=== PATIENT | female | born 1960 | race Caucasian/White ===

== ENCOUNTER 2018-02-10 08:25 | Day surgery (SDC) | payer BC ==
[2018-02-10] MEDS ORDERED: Sodium Chloride 0.9% 10 ML Syringe IV ONE (08:26)
[2018-02-10] MEDS ORDERED: Dexamethasone 4 MG/ML SDV IV ONE (08:26)
[2018-02-10] MEDS ORDERED: Midazolam 1 MG/ML 2 ML SDV IV ONE (08:26)
[2018-02-10] MEDS ORDERED: Proparacaine 0.5% Ophth Soln 15 ML Bottle EYELF ONE (08:30)
[2018-02-10] MEDS ORDERED: Sodium Chloride 0.9% 10 ML Syringe FLUSH PRN (08:30)
[2018-02-10] MEDS ORDERED: Phenylephrine 10% Ophth Soln 5 ML Bot EYELF ONE (08:30)
[2018-02-10] MEDS ORDERED: Acetaminophen 325 MG Tab PO PRN (08:30)
[2018-02-10] MEDS ORDERED: Cataract Ophth Solution EYELF ONE (08:30)
[2018-02-10] MEDS ORDERED: Moxifloxacin 0.5% Ophth Soln 3 ML Bottle EYELF ONE (08:30)
[2018-02-10] MEDS ORDERED: Timolol Maleate 0.5% Ophth Soln 5 ML Bottle EYELF ONE (08:30)
[2018-02-10] MEDS ORDERED: Ondansetron 4 MG/2 ML SDV IVPUSH PRN (08:30)
[2018-02-10] MEDS ORDERED: Povidone-Iodine 5% Sterile Ophth Soln 30 ML Bottle EYELF ONE ×2 (08:30→09:39)
[2018-02-10] MEDS ORDERED: Phenylephrine 10% Ophth Soln 5 ML Bot EYELF PRN (08:30)
[2018-02-10] MEDS ORDERED: Tetracaine HCl/PF 0.5% 4 ML Bottle EYELF ONE (09:39)
[2018-02-10] MEDS ORDERED: Lidocaine 1% 30 ML SDV INJECT ONE (09:45)
[2018-02-10] MEDS ORDERED: Vancomycin 500 MG SDV EYELF ONE (09:45)
[2018-02-10] MEDS ORDERED: Balanced Salt Solution Ophth Irrig 500 ML Bottle IOCULAR ONE (09:47)
[2018-02-10] MEDS ORDERED: Chondroitin Sulfate/Hyaluronate Sodium Ophth Inj 0.5 ML Syringe IOCULAR ONE (09:47)
[2018-02-10] MEDS ORDERED: Apraclonidine 0.5% Ophth Soln 5 ML Bot EYELF ONE (09:55)
[2018-02-10] MEDS ORDERED: Dexamethasone/Neomycin/Polymyxin B Ophth Oint 3.5 GM Tube EYELF ONE (09:56)
--- NOTE | 2018-02-10 10:14 | OR ---
DATE: 02/10/2018 PREOPERATIVE DIAGNOSIS: Visually significant mixed cataract, left eye. POSTOPERATIVE DIAGNOSIS: Visually significant mixed cataract, left eye. PROCEDURE: Extracapsular cataract extraction with intraocular lens implant, left eye. ANESTHESIA: Topical/local MAC. COMPLICATIONS: None. INDICATION: Ms. Freeman was seen in the clinic with complaints of blurred vision and difficulty seeing both near and distance. Her clinical examination revealed mixed nuclear, cortical, and posterior subcapsular cataract. I explained options; I offered cataract surgery; and I explained risks including but not limited to infection, retinal detachment, loss of vision, need for additional surgery, and risks associated with anesthesia. We discussed implant options. She is symptomatic, and she has requested a multifocal implant. I did explain the increased potential for glare, halo, and dysphotopsia. She voiced an understanding with respect to risks, limitations, and wished to proceed. OPERATIVE DESCRIPTION: After informed consent was obtained and the risks, benefits, and alternatives were explained, the patient was brought to the operative suite and topical anesthesia was administered. The patient was then prepped and draped in the sterile fashion, and attention was placed on the left eye. A sterile lid speculum was placed into the left eye to allow operative exposure. A full-thickness paracentesis was made in the temporal portion of the operative eye. Preservative-free lidocaine 0.1 mL was injected into the anterior chamber followed by viscoelastic. A full-thickness corneal incision was then made into the anterior chamber. A bent needle cystotome was used to create a small lindsay in the anterior capsule. The capsulorrhexis forceps was then used to create a 360-degree curvilinear capsulorrhexis. The nucleus was then removed using a phacoemulsification handpiece, and the remaining cortical material was then removed with irrigation and aspiration handpiece. Following removal of the cortical material, the capsular bag was then inspected and noted to be free of any holes or tears. Viscoelastic was then injected into the capsular bag, and the intraocular lens was inserted into the capsular bag. The viscoelastic material was then removed from both the anterior and posterior chambers and from behind the IOL. The lens and capsular bag were then reinspected. The IOL was well centered and the capsular bag intact. The wound and paracentesis sites were inspected and hydrated with balanced saline solution. Both were found to be self-sealing. The intraocular pressure was assessed digitally and found to be within normal range. A good red reflex was noted at the completion of the procedure. No complications occurred during the operation. At the completion of the procedure, Maxitrol, Voltaren, and Iopidine drops were placed into the operative eye. A sterile eye shield was placed over the operative eye, and the patient was transported to the postoperative recovery area having tolerated the procedure well. Postoperative instructions were given along with a postoperative appointment. The patient was advised to call with any questions or concerns. [facility] /[id number]
[2018-02-10 11:04] VITALS: BP 101/67
== END 2018-02-10 11:00 | disposition home or self-care (01) ==
LOC: DL.SDS 08:25
PROVIDERS: ATTEND Ophthalmology
DX: H25.812 Combined forms of age-related cataract, left eye (principal)
CPT/HCPCS: A9270-GY; J1100; J2250; J3370; J7050; V2788

== ENCOUNTER 2018-02-17 06:23 | Day surgery (SDC) | payer BC ==
[2018-02-17] MEDS ORDERED: Midazolam 1 MG/ML 2 ML SDV IV ONE (06:24)
[2018-02-17] MEDS ORDERED: Dexamethasone 4 MG/ML SDV IV ONE (06:24)
[2018-02-17] MEDS ORDERED: Sodium Chloride 0.9% 10 ML Syringe IV ONE (06:24)
[2018-02-17] MEDS ORDERED: Povidone-Iodine 5% Sterile Ophth Soln 30 ML Bottle EYERT ONE ×2 (06:30→07:45)
[2018-02-17] MEDS ORDERED: Phenylephrine 10% Ophth Soln 5 ML Bot EYERT ONE ×2 (06:30→08:05)
[2018-02-17] MEDS ORDERED: Ondansetron 4 MG/2 ML SDV IVPUSH PRN (06:30)
[2018-02-17] MEDS ORDERED: Moxifloxacin 0.5% Ophth Soln 3 ML Bottle EYERT ONE (06:30)
[2018-02-17] MEDS ORDERED: Cataract Ophth Solution EYERT ONE (06:30)
[2018-02-17] MEDS ORDERED: Timolol Maleate 0.5% Ophth Soln 5 ML Bottle EYERT ONE (06:30)
[2018-02-17] MEDS ORDERED: Acetaminophen 325 MG Tab PO PRN (06:30)
[2018-02-17] MEDS ORDERED: Sodium Chloride 0.9% 10 ML Syringe FLUSH PRN (06:30)
[2018-02-17] MEDS ORDERED: Phenylephrine 10% Ophth Soln 5 ML Bot EYERT PRN (06:30)
[2018-02-17] MEDS ORDERED: Proparacaine 0.5% Ophth Soln 15 ML Bottle EYERT ONE (06:30)
[2018-02-17] MEDS ORDERED: Tetracaine HCl/PF 0.5% 4 ML Bottle EYERT ONE (07:45)
[2018-02-17] MEDS ORDERED: Lidocaine 1% 30 ML SDV INJECT ONE (07:50)
[2018-02-17] MEDS ORDERED: Vancomycin 500 MG SDV EYERT ONE (07:50)
[2018-02-17] MEDS ORDERED: Balanced Salt Solution Ophth Irrig 500 ML Bottle IOCULAR ONE (07:56)
[2018-02-17] MEDS ORDERED: Chondroitin Sulfate/Hyaluronate Sodium Ophth Inj 0.75 ML Syringe EYERT ONE (07:57)
[2018-02-17] MEDS ORDERED: Apraclonidine 0.5% Ophth Soln 5 ML Bot EYERT ONE (08:04)
[2018-02-17] MEDS ORDERED: Dexamethasone/Neomycin/Polymyxin B Ophth Oint 3.5 GM Tube EYERT ONE (08:05)
[2018-02-17 09:08] VITALS: BP 115/66
--- NOTE | 2018-02-17 14:48 | OR ---
DATE: 02/17/2018 PREOPERATIVE DIAGNOSIS: Visually significant mixed cataract, right eye. POSTOPERATIVE DIAGNOSIS: Visually significant mixed cataract, right eye. PROCEDURE: Extracapsular cataract extraction with intraocular lens implant, right eye. ANESTHESIA: Topical/local MAC. COMPLICATIONS: None. INDICATION: The patient was seen in the clinic with complaints of blurred vision. Clinical examination revealed visually significant mixed cataract. I explained options; I offered cataract surgery; and I explained risks including, but not limited to infection, retinal detachment, loss of vision, and need for additional surgery amongst others. We discussed implant options. She has requested a multifocal implant. I did explain the slightly increased potential for glare halo and dysphotopsia. She voiced an understanding with respect to risks and limitations. She is symptomatic and motivated to proceed. OPERATIVE DESCRIPTION: After informed consent was obtained and the risks, benefits, and alternatives were explained, the patient was brought to the operative suite and topical anesthesia was administered. The patient was then prepped and draped in the sterile fashion and attention was placed on the right eye. A sterile lid speculum was placed into the right eye to allow operative exposure. A full-thickness paracentesis was made in the temporal portion of the operative eye. Preservative-free lidocaine 0.1 mL was injected into the anterior chamber followed by viscoelastic. A full-thickness corneal incision was then made into the anterior chamber. A bent needle cystotome was used to create a small lindsay in the anterior capsule. The capsulorrhexis forceps was then used to create a 360-degree curvilinear capsulorrhexis. The nucleus was then removed using a phacoemulsification handpiece, and the remaining cortical material was then removed with irrigation and aspiration handpiece. Following removal of the cortical material, the capsular bag was then inspected and noted to be free of any holes or tears. Viscoelastic was then injected into the capsular bag, and the intraocular lens was inserted into the capsular bag. The viscoelastic material was then removed from both the anterior and posterior chambers and from behind the IOL. The lens and capsular bag were then reinspected. The IOL was well centered and the capsular bag intact. The wound and paracentesis sites were inspected and hydrated with balanced saline solution. Both were found to be self-sealing. The intraocular pressure was assessed digitally and found to be within normal range. A good red reflex was noted at the completion of the procedure. No complications occurred during the operation. At the completion of the procedure, Maxitrol, Voltaren, and Iopidine drops were placed into the operative eye. A sterile eye shield was placed over the operative eye, and the patient was transported to the postoperative recovery area having tolerated the procedure well. Postoperative instructions were given along with a postoperative appointment. The patient was advised to call with any questions or concerns. [facility] /[id number]
== END 2018-02-17 09:07 | disposition home or self-care (01) ==
LOC: DL.SDS 06:23
PROVIDERS: ATTEND Ophthalmology
DX: H25.811 Combined forms of age-related cataract, right eye (principal); Z88.8 Allergy status to other drugs, medicaments and biological substances; Z79.899 Other long term (current) drug therapy
CPT/HCPCS: 66984; A9270; J3370; J7050; J1100; J2250; V2788

== ENCOUNTER 2021-04-24 20:03 | Emergency (ER) | payer BC, MEDICAID ==
[2021-04-24 20:40] VITALS: BP 120/67; PULSE 84
--- NOTE | 2021-04-24 21:38 | EDM.PDOC ---
ED HPI GENERAL MEDICAL PROBLEM - General Chief Complaint: Head Injury Stated Complaint: MIDDLE BACK OF HEAD LACERATION Time Seen by Provider: 04/24/21 20:20 Source of Information: Reports: Patient History Limitations: Reports: No Limitations - History of Present Illness INITIAL COMMENTS - FREE TEXT/NARRATIVE: ED with c/o laceration of back of head , no loss of consciousness. tripped on flower pot in shed hit door frame. [employer]us 2018 - Related Data Allergies Allergy/AdvReac Type Severity Reaction Status Date / Time codeine Allergy Nausea and Verified 02/17/18 06:56 Vomiting Home Meds: Home Meds Calcium Carb/Vitamin D3/Vit K1 [Calcium + D Soft Chewable Tab] 1 each PO DAILY 12/22/13 [History] Linaclotide [Linzess] 1 cap PO DAILY 03/03/16 [History] Citalopram [Celexa] 10 mg PO DAILY 03/04/16 [History] Amoxicillin 1 tab PO BID 04/24/21 [History] Past Medical History HEENT History: Reports: Cataract, Impaired Vision Other HEENT History: WEARS CORRECTIVE LENSES Cardiovascular History: Reports: None Respiratory History: Reports: None Gastrointestinal History: Reports: Chronic Constipation, Irritable Bowel Syndrome, Other (See Below) Other Gastrointestinal History: LACTOSE INTOLERANCE Genitourinary History: Reports: Chronic Renal Insuffiency LABOR RELATIONS SPECIALIST History: Reports: Fibroids, , Other (See Below) Other LABOR RELATIONS SPECIALIST History: ATYPICAL LOBULAR HYPERPLASISA OF BREAST Musculoskeletal History: Reports: Other (See Below) Other Musculoskeletal History: CHONDROMALACIA PATELLAE SYNDROME; CERVICAL DISC SYNDROME; MYALGIA Neurological History: Reports: None Psychiatric History: Reports: Anxiety Endocrine/Metabolic History: Reports: None Hematologic History: Reports: Anemia Immunologic History: Reports: None Oncologic (Cancer) History: Reports: None Dermatologic History: Reports: None - Infectious Disease History Infectious Disease History: Reports: Chicken Pox, Shingles - Past Surgical History Head Surgeries/Procedures: Reports: None HEENT Surgical History: Reports: Adenoidectomy, Cataract Surgery, Tonsillectomy Cardiovascular Surgical History: Reports: None GI Surgical History: Reports: Colonoscopy Female Surgical History: Reports: Breast Biopsy, D&C, Hysterectomy, Salpingo- Oophorectomy, Other (See Below) Other Female Surgeries/Procedures: MYOMECTOMY; ENDOMETRIAL BIOPSY Oncologic Surgical History: Reports: Biopsy of Breast Dermatological Surgical History: Reports: Other (See Below) Social & Family History - Family History Family Medical History: No Pertinent Family History - Caffeine Use Caffeine Use: Reports: Coffee Caffeine Use Comment: 3-4 CUPS DAILY ED ROS GENERAL - Review of Systems Review Of Systems: Comprehensive ROS is negative, except as noted in HPI. ED EXAM, HEAD INJURY - Physical Exam Exam: See Below Exam Limited By: No Limitations General Appearance: Alert, Anxious, Mild Distress Head: Normocephalic, Scalp Lacerations Nexus Criteria: No: Posterior, Midline Cervical Tenderness, Evidence of Intoxication, Altered Level of Consciousness, Focal Neurological Deficit, Painful Distraction Injuries Ears: Normal External Exam Nose: Nasal Deformity Throat/Mouth: Normal Inspection Neck: Non-Tender, Full Range of Motion, Normal Alignment Respiratory: No Respiratory Distress, Lungs Clear Cardiovascular: Normal Peripheral Pulses, Regular Rate, Rhythm Back Exam: Full Range of Motion Extremities: Normal Inspection Neurologic: No Motor/Sensory Deficits, Alert, Normal Mood/Affect, Oriented x 3 - Harvey Coma Score Best Eye Response (Chidi): (4) Open Spontaneously Best Verbal Response (Harvey): (5) Oriented Best Motor Response (Chidi): (6) Obeys Commands ED LACERATION/WOUND & DAISY PROC - Laceration/Wound Repair Left Posterior Head Lac/wound length in cm: 3 Appearance: Superficial Skin Prep: Chlorhexidine (Hibiciens), Saline Closed with: Maite (x3) Tetanus Status Addressed: Yes (2018) Complications: No Course - Vital Signs Last Recorded V/S: Last Vital Signs Temp 98 F 04/24/21 20:19 Pulse 84 04/24/21 20:19 Resp 16 04/24/21 20:19 BP 120/67 04/24/21 20:19 Pulse Ox 100 04/24/21 20:19 Departure - Departure Time of Disposition: 21:45 Disposition: Home, Self-Care 01 Condition: Good Clinical Impression: Scalp laceration Scalp contusion Qualifiers: Encounter type: initial encounter Qualified Code(s): S00.03XA - Contusion of scalp, initial encounter Cervical strain, acute Qualifiers: Encounter type: initial encounter Qualified Code(s): S16.1XXA - Strain of muscle, fascia and tendon at neck level, initial encounter - Discharge Information *PRESCRIPTION DRUG MONITORING PROGRAM REVIEWED*: No *COPY OF PRESCRIPTION DRUG MONITORING REPORT IN PATIENT YUSUF: No Instructions: Concussion, Adult, [id number], Laceration Care, Adult, [id number] Referrals: PCP,None [Primary Care Provider] - Forms: ED Department Discharge Additional Instructions: may shower tomorrow maite out 7-10 days tylenol or ibuprofen for discomfort cold pack to scalp follow up if dizziness, weakness, severe headache Sepsis Event Note (ED) - Evaluation Sepsis Screening Result: No Definite Risk
== END 2021-04-24 21:48 | disposition home or self-care (01) ==
LOC: DL.ED 20:03
DX: S01.01XA Laceration without foreign body of scalp, initial encounter (principal); S16.1XXA Strain of muscle, fascia and tendon at neck level, initial encounter; Z88.5 Allergy status to narcotic agent; W22.8XXA Striking against or struck by other objects, initial encounter; W26.8XXA Contact with other sharp object(s), not elsewhere classified, initial encounter
CPT/HCPCS: 12002; 99282-25

== ENCOUNTER 2021-12-10 07:16 | Day surgery (SDC) | payer SELFPAY ==
[2021-12-10 07:51] VITALS: BP 115/43; PULSE 91
== END 2021-12-10 09:54 | disposition home or self-care (01) ==
LOC: DL.SDS 07:16
PROVIDERS: ATTEND Internal Medicine Gastroenterology
DX: K58.9 Irritable bowel syndrome, unspecified (principal); K64.4 Residual hemorrhoidal skin tags; E73.9 Lactose intolerance, unspecified; D72.819 Decreased white blood cell count, unspecified; E78.00 Pure hypercholesterolemia, unspecified

== ENCOUNTER 2022-09-30 10:22 | Emergency (ER) | payer OTHER ==
[2022-09-30] MEDS ORDERED: fentaNYL 100 MCG/2 ML SDV IV ONE (10:23)
[2022-09-30] MEDS ORDERED: Propofol 200 MG/20 ML SDV IV ONE (10:23)
[2022-09-30] MEDS ORDERED: Sodium Chloride 0.9% 10 ML Syringe FLUSH PRN (10:41)
[2022-09-30] MEDS ORDERED: fentaNYL 100 MCG/2 ML SDV IVPUSH ONE (10:41)
[2022-09-30] MEDS ORDERED: Ondansetron 4 MG/2 ML SDV IV ONE (10:42)
[2022-09-30 11:30] VITALS: BP 92/61; PULSE 82
== END 2022-09-30 12:10 | disposition home or self-care (01) ==
LOC: DL.ED 10:22
DX: S52.501A Unspecified fracture of the lower end of right radius, initial encounter for closed fracture (principal); S52.611A Displaced fracture of right ulna styloid process, initial encounter for closed fracture; N18.9 Chronic kidney disease, unspecified; Z79.899 Other long term (current) drug therapy; Z88.5 Allergy status to narcotic agent; W01.0XXA Fall on same level from slipping, tripping and stumbling without subsequent striking against object, initial encounter; Y93.73 Activity, racquet and hand sports
CPT/HCPCS: 01820; 25605; 73100; 73110; 96374; 99283; J2405; J2704; J3010

== ENCOUNTER 2025-06-19 05:45 | Day surgery (SDC) | payer MEDICARE, BC ==
[~2025-06-19 05:45] MED LIST: Propofol 200 MG/20 ML SDV ONE
[2025-06-19] MEDS: Lactated Ringers 1,000 ML IV SCH (06:12)
[2025-06-19 08:38] VITALS: BP 100/58; PULSE 80
== END 2025-06-19 08:45 | disposition home or self-care (01) ==
LOC: DL.ENDO 05:45
PROVIDERS: ATTEND Internal Medicine Gastroenterology
DX: K57.31 Diverticulosis of large intestine without perforation or abscess with bleeding (principal); K64.4 Residual hemorrhoidal skin tags; K64.8 Other hemorrhoids; Z79.899 Other long term (current) drug therapy
CPT/HCPCS: 00811; J7120